=== PATIENT | male | born 1980 | race Caucasian/White ===

== ENCOUNTER 2022-09-08 23:40 | Emergency (ER) | payer SELFPAY ==
[~2022-09-08] VITALS: Ht 167.6 cm; Wt 81.4 kg
[2022-09-08 23:44] VITALS: TEMP 98.7
[2022-09-09 00:45] VITALS: BP 134/71; PULSE 99; RESP 17
[2022-09-09] MEDS ORDERED: IBUPROFEN 600 MG TABLET PO ONE (01:15)
[2022-09-09] MEDS ORDERED: PERTUSS(ACELL),DIPH,TET VAC/PF 0.5 ML SYRINGE IM. ONE (01:15)
[2022-09-09] MEDS ORDERED: LIDOCAINE 1% 10 ML VIAL SQ ONE (01:15)
== END 2022-09-09 01:55 | disposition home or self-care (01) ==
LOC: EMS 23:43
DX: S01.21XA Laceration without foreign body of nose, initial encounter (principal); S60.212A Contusion of left wrist, initial encounter; F17.210 Nicotine dependence, cigarettes, uncomplicated; X58.XXXA Exposure to other specified factors, initial encounter; Y93.89 Activity, other specified; Y92.89 Other specified places as the place of occurrence of the external cause; Y99.8 Other external cause status
CPT/HCPCS: 99283; 12013; 73110; 90715; 90471; J3490

== ENCOUNTER 2022-09-15 15:07 | Emergency (ER) | payer SELFPAY ==
[~2022-09-15] VITALS: Ht 170.2 cm; Wt 81.8 kg
[2022-09-15 15:09] VITALS: TEMP 98
[2022-09-15 15:49] VITALS: BP 133/88; PULSE 84; RESP 16
== END 2022-09-15 16:50 | disposition home or self-care (01) ==
LOC: EMS 15:08
DX: S01.21XD Laceration without foreign body of nose, subsequent encounter (principal); F17.210 Nicotine dependence, cigarettes, uncomplicated; Z48.02 Encounter for removal of sutures; W45.8XXD Other foreign body or object entering through skin, subsequent encounter
CPT/HCPCS: 99282; Z7502

== ENCOUNTER 2022-09-18 11:53 | Emergency (ER) | payer SELFPAY ==
[~2022-09-18] VITALS: Ht 170.2 cm; Wt 79.5 kg
[2022-09-18 12:06] VITALS: BP 153/94; PULSE 72; RESP 18; TEMP 98
== END 2022-09-18 12:45 | disposition home or self-care (01) ==
LOC: EMS 11:55
DX: S01.21XD Laceration without foreign body of nose, subsequent encounter (principal); F17.210 Nicotine dependence, cigarettes, uncomplicated; Z48.02 Encounter for removal of sutures; X58.XXXD Exposure to other specified factors, subsequent encounter
CPT/HCPCS: 99281; Z7502